=== PATIENT | female | born 1985 | race Caucasian/White ===

== ENCOUNTER 2016-09-03 04:22 | Emergency (ER) | payer MEDICAID ==
[2016-09-03] MEDS ORDERED: SODIUM CHLORIDE 0.9% 3 ML FLUSH FLUSH PRN (04:52)
[2016-09-03] MEDS ORDERED: ONDANSETRON HCL 4 MG/2 ML VIAL IV STA (04:52)
[2016-09-03] MEDS ORDERED: NS 1,000 ML IV ONE (04:52)
[2016-09-03 04:58] VITALS: BMI 50.1
[2016-09-03 04:59] VITALS: TEMP 97.6
[2016-09-03 05:02] LABS: AUTOMATED BASOPHIL 1.3 % (0-2); AUTOMATED EOSINOPHIL 0.3 % (0-5); AUTOMATED MONOCYTE 5.4 % (3-10); MPV 7.5 fL (7.4-10.4)
[2016-09-03 05:12] LABS: BLOOD UREA NITROGEN 16 MG/DL (7-17); CALCIUM 8.7 MG/DL (8.4-10.2); CALCULATED OSMOLALITY 271 MOs/Kg (270-290); CHLORIDE 103 mEq/L (98-107); GLUCOSE 112 MG/DL (70-99); SODIUM LEVEL 140 mEq/L (137-146); TOTAL PROTEIN 6.8 G/DL (6.3-8.2)
[2016-09-03] MEDS ORDERED: SODIUM CHLORIDE 0.9% 3 ML FLUSH FLUSH SCH (06:00)
[2016-09-03] MEDS ORDERED: DICYCLOMINE 10 MG CAP PO ONE (06:02)
--- NOTE | 2016-09-03 06:05 | EDPRACDOC ---
- General Information Chief Complaint: Nausea,Vomiting,Diarrhea Stated Complaint: VOMITING, DIARRHEA & ABDOMINAL PAIN Time Seen by Provider: 09/03/16 04:49 Information Source: Patient Home Medications: Home Medications Albuterol Sulfate [Proair Respiclick] 90 mcg IH Q6H PRN 04/30/15 Cholecalciferol (Vitamin D3) [Vitamin D3] 10,000 unit PO DAILY 04/30/15 Dexlansoprazole [Dexilant] 30 mg PO DAILY 04/30/15 Ergocalciferol (Vitamin D2) [Vitamin D2 (ergocalciferol)] 50,000 units PO DAILY 04/30/15 Hydroxyzine HCl 25 mg PO BID 04/30/15 Montelukast Sodium [Singulair] 10 mg PO DAILY 04/30/15 Albuterol Sulfate 1.25 mg NEB QID #1 neb 08/16/15 Albuterol Sulfate [Proair Hfa] 2 puff INH QID PRN #1 inhaler 08/16/15 Ranitidine HCl [Zantac] 300 mg PO DAILY #30 tablet 04/16/16 Beclomethasone Dipropionate [Qvar] 8.7 gm IH BID 09/03/16 Cetirizine HCl [Zyrtec] 10 mg PO DAILY 09/03/16 Dicyclomine HCl [Bentyl] 20 mg PO Q6H #20 tab 09/03/16 Mometasone/Formoterol [Dulera 100 Mcg/5 Mcg Inhaler] 13 gm IH BID 09/03/16 Ondansetron HCl [Zofran] 4 mg PO Q6H PRN #15 tab 09/03/16 Prednisone 15 mg PO DAILY 09/03/16 Allergies/Adverse Reactions: Allergies Allergy/AdvReac Type Severity Reaction Status Date / Time codeine [Codeine] Allergy Severe Hives* Verified 09/03/16 05:01 Sulfa (Sulfonamide Allergy Hives* Verified 09/03/16 05:01 Antibiotics) - History of Present Illness Onset: 0000 HPI: PT PRESENTS WITH NAUSEA AND DIARRHEA THAT BEGAN AROUND MIDNIGHT. MULTIPLE SICK CONTACTS IN HER HOUSEHOLD HAVE SAME SYMPTOMS. Symptoms Occured: Reports: Spontaneous Recent: Reports: Contact Exposure Pain Quality: Reports: Aching, Cramping Pain Severity: Moderate Pain Location: Reports: Diffuse Associated Signs & Symptoms: Reports: Nausea, Vomiting, Diarrhea. 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 Denies: Depression - Family Medical History Reports: Hypertension (mother), Diabetes (GRANDMOTHER), Cancer (grandmother- breast ca), Stroke (MOM), Cardiac Disorders (mother) - Social Medical History Smoking Status: Never smoker Lives With: Family Lives In: Home EDM Review of Systems - Review of Systems ROS Negative Except as Marked: Yes All systems reviewed and were negative except as marked Constitutional: Fatigue. negative: Fever Respiratory: negative: Shortness of Breath Cardiovascular: negative: Chest Pain Gastrointestinal: Diarrhea, Nausea, Pain, Vomiting Genitourinary: negative: Dysuria - Physical Exam Constitutional: Alert Oriented to: Time, Person, Place Last recorded Vital Signs: Last Vital Signs Temp 97.6 F 09/03/16 04:57 Pulse 89 09/03/16 05:11 Resp 20 09/03/16 05:11 BP 141/92 09/03/16 05:11 Pulse Ox 96 09/03/16 05:11 Oxygen Pulse Oxygen Saturation 96 O2 Device Room Air Oxygen Flow Rate Fraction of Inspired Oxygen ( FIO2) - HEENT Head: negative: Deformity, Laceration Eye Exam: negative: Conjunctival Injection, Pale Conjunctiva Oropharynx: negative: Membranes Dry Nose: negative: Congestion, Discharge Neck: negative: Limited ROM - Respiratory/Cardiovascular Respiratory: Normal - CTA. negative: Accessory Muscle Use, Diminished, Tachypnea Cardiovascular: Tachycardia. negative: Bradycardia, Irregular - GI Auscultation: Increased Palpation: Normal Tenderness: Diffuse, Mild - Musculoskeletal Extremities: Radial Pulse (PALPABLE) - Integumentary Skin: Warm, Dry. negative: Rash - Neurologic Memory Impaired: Normal Motor Function: Normal Mood Description: Anxious, Appropriate Thought: Coherent Perception: Normal - Results 09/03/16 04:50 09/03/16 04:50 WBC 15.2 xk/uL (3.8-10.8) H 09/03/16 04:50 RBC 6.22 xM/uL (4.20-5.40) H 09/03/16 04:50 Hgb 16.6 g/dL (12.0-16.0) H 09/03/16 04:50 Hct 50.9 % (36-47) H 09/03/16 04:50 MCV 82 fL (81-99) 09/03/16 04:50 MCH 26.6 pg (27-32) L 09/03/16 04:50 MCHC 32.5 g/dl (33-36) L 09/03/16 04:50 RDW 14.8 % (11.5-14.5) H 09/03/16 04:50 Plt Count 280 xk/uL (130-400) 09/03/16 04:50 MPV 7.5 fL (7.4-10.4) 09/03/16 04:50 Neut % (Auto) 90.0 % (45-76) H 09/03/16 04:50 Lymph % (Auto) 3.0 % (17-44) L 09/03/16 04:50 [place] % (Auto) 5.4 % (3-10) 09/03/16 04:50 Eos % (Auto) 0.3 % (0-5) 09/03/16 04:50 Baso % (Auto) 1.3 % (0-2) 09/03/16 04:50 Absolute Neuts (auto) 13.68 xk/uL (1.7-8.2) H 09/03/16 04:50 Absolute Lymphs (auto) 0.46 xk/uL (0.65-4.75) L 09/03/16 04:50 Sodium 140 mEq/L (137-146) 09/03/16 04:50 Potassium 4.3 mEq/L (3.5-5.1) 09/03/16 04:50 Chloride 103 mEq/L (98-107) 09/03/16 04:50 Carbon Dioxide 28 mMOL/L (22-33) 09/03/16 04:50 Anion Gap 13 mEq/L (8-16) 09/03/16 04:50 BUN 16 MG/DL (7-17) 09/03/16 04:50 Creatinine 1.00 MG/DL (0.52-1.04) 09/03/16 04:50 Estimated GFR (MDRD) > 60 mL/min (>=60) 09/03/16 04:50 Glucose 112 MG/DL (70-99) H 09/03/16 04:50 Calculated Osmolality 271 MOs/Kg (270-290) 09/03/16 04:50 Calcium 8.7 MG/DL (8.4-10.2) 09/03/16 04:50 Total Bilirubin 0.8 MG/DL (0.2-1.3) 09/03/16 04:50 AST 17 IU/L (14-36) 09/03/16 04:50 ALT 45 IU/L (9-52) 09/03/16 04:50 Alkaline Phosphatase 70 IU/L (38-126) 09/03/16 04:50 Total Protein 6.8 G/DL (6.3-8.2) 09/03/16 04:50 Albumin 4.1 G/DL (3.5-5.0) 09/03/16 04:50 Lipase 71 U/L (23-300) 09/03/16 04:50 Lab Results 09/03/16 09/03/16 04:50 04:50 WBC 15.2 H RBC 6.22 H Hgb 16.6 H Hct 50.9 H MCV 82 MCH 26.6 L MCHC 32.5 L RDW 14.8 H Plt Count 280 MPV 7.5 Neut % (Auto) 90.0 H Lymph % (Auto) 3.0 L [place] % (Auto) 5.4 Eos % (Auto) 0.3 Baso % (Auto) 1.3 Absolute Neuts (auto) 13.68 H Absolute Lymphs (auto) 0.46 L Sodium 140 Potassium 4.3 Chloride 103 Carbon Dioxide 28 Anion Gap 13 BUN 16 Creatinine 1.00 Estimated GFR (MDRD) > 60 Glucose 112 H Calculated Osmolality 271 Calcium 8.7 Total Bilirubin 0.8 AST 17 ALT 45 Alkaline Phosphatase 70 Total Protein 6.8 Albumin 4.1 Lipase 71 Decision Time to Discharge: 06:04 - Departure Yes I personally saw and evaluated the patient. Disposition: Home Condition: Stable Final Diagnosis: Nausea and vomiting Diarrhea Qualifiers: Diarrhea type: unspecified type Qualified Code(s): R19.7 - Diarrhea, unspecified Instructions: Acute Nausea and Vomiting (ED), Acute Diarrhea (ED) Education/Counseling Given To: Patient, Family Member Education/Counseling Given Regarding: Diagnosis, Treatment, Prognosis, Follow Up Referrals: None,No Provider [Primary Care Provider] - Call for Appointment Prescriptions: Dicyclomine HCl [Bentyl] 20 mg PO Q6H #20 tab Ondansetron HCl [Zofran] 4 mg PO Q6H PRN #15 tab PRN Reason: Nausea/Vomiting
[2016-09-03 06:07] VITALS: BP 135/80; PULSE 80
== END 2016-09-03 06:48 | disposition home or self-care (01) ==
LOC: ED 04:22
DX: R11.2 Nausea with vomiting, unspecified (principal); R19.7 Diarrhea, unspecified; J45.909 Unspecified asthma, uncomplicated; K21.9 Gastro-esophageal reflux disease without esophagitis; F41.9 Anxiety disorder, unspecified; Z79.899 Other long term (current) drug therapy
CPT/HCPCS: 36415; 80053; 83690; 85025; 96361; 96374; 99284; J2405; J3490